=== PATIENT | female | born 1960 | race Caucasian/White ===

== ENCOUNTER 2016-12-29 16:46 | Emergency (ER) | payer MEDICARE ==
[~2016-12-29 16:46] MED LIST: LORA-392 PO; NEXI40CA PO; RIVA15 PO; TRAM50 PO
[2016-12-29 18:23] VITALS: BP 146/78; PULSE 75; RESP 18; O2SAT 97
[2016-12-29 19:18] VITALS: BP 123/78; PULSE 80; RESP 16; O2SAT 97
[2016-12-29] MEDS ORDERED: NEXI40CA PO (19:27)
[2016-12-29] MEDS ORDERED: XARE20TA PO (19:27)
[2016-12-29] MEDS ORDERED: LORA-373 PO (19:27)
[2016-12-29] MEDS ORDERED: HYDR-3111 PO (19:27)
[2016-12-29] MEDS ORDERED: SODIUM CHLORIDE 0.9% FLUSH 5 ML FLUSH IVF PRN (19:30)
--- NOTE | 2016-12-29 19:40 | PD ---
HPI Chief Complaint: Headache Time Seen by Provider: 19:28 Travel History International Travel<30 days: No Contact w/Intl Traveler<30days: No Traveled to known affect area: No History of Present Illness HPI 56-year-old female presents to the emergency department by EMS transport from home for complaint of new onset left-sided facial, left upper extremity, and left lower extremity numbness sudden onset since 4 PM. Patient states that this persisted and while waiting to see if symptoms would resolve she had resolution of left lower extremity numbness but had persistent left facial/ cheek numbness and left upper extremity numbness. Patient states finally her called 911 and she was transported to the hospital by EMS. Patient reports while in the EMS unit she had sudden onset of severe headache 9/10 in intensity. Patient states that she occasionally has headaches related to chronic neck pain for which she receives injections to pain management last injections occurred 3 weeks ago. Patient states this headache is different and left-sided. No visual disturbance no loss of vision no double vision no blurred vision. Patient denies her typical neck pain that is associated with her chronic recurrent headaches. Patient denies any chest pain or palpitations and denies history of atrial fibrillation. Patient denies shortness of breath. Patient denies any upper extremity or lower extremity weakness. Patient denies any previous history of numbness or weakness of the extremities. Patient has been nonambulatory. Symptoms began at 4 PM while watching TV. Patient states that she has history of chronic recurrent blood clots to the lower extremities and PEs. Patient is currently prescribed a liquids and has been on the medication daily for 2 years. Patient denies any family history of stroke or cerebral aneurysm. Patient is unable to identify exacerbating or alleviating factors. Patient received no medications en route to the hospital by EMS. PFSH Past Medical History Blood Disorders: Yes (PE 2005 AND 2008) Cardiovascular Problems: Yes (HX DVT ) Diminished Hearing: No Deep Vein Thrombosis: Yes GERD: Yes Respiratory: Yes (HX PE) Immunizations Current: Yes Tetanus Vaccination: Unknown Influenza Vaccination: No ?: Not : 0 Past Surgical History Appendectomy: Yes Hysterectomy: Yes (partial 2013) Social History Alcohol Use: No Tobacco Use: Yes (1 PACK A WEEK) Substance Use: No Allergies-Medications (Allergen,Severity, Reaction): Coded Allergies: No Known Allergies (Unverified , 08/16/14) Reported Meds & Prescriptions Reported Meds & Active Scripts Active Reported Vicodin (Hydrocodone-Acetaminophen) 5-300 Mg Tab 1 Tab PO Q4H PRN Lorazepam 0.5 Mg Tab 0.5 Mg PO Q4H PRN Nexium (Esomeprazole DR) 40 Mg Capdr 40 Mg PO PRN Xarelto (Rivaroxaban) 20 Mg Tab 20 Mg PO DAILY Review of Systems Except as stated in HPI: all other systems reviewed are Neg General / Constitutional: No: Fever, Chills Eyes: No: Diploplia, Blurred Vision, Visual changes HENT: Positive: Headaches, No: Vertigo, Lightheadedness, Neck Pain Cardiovascular: No: Chest Pain or Discomfort, Palpitations, Diaphoresis Respiratory: No: Cough, Shortness of Breath Gastrointestinal: Positive: Nausea, No: Vomiting Genitourinary: No: Flank Pain Musculoskeletal: No: Myalgias, Arthralgias Skin: No Rash Neurologic: Positive: Focal Abnormalities, Headache, Paresthesia, Sensory Disturbance, No: Weakness, Dizziness, Syncope, Coordination Problem, Ataxia, Change in Mentation, Slurred Speech, Incontinence, Seizures Psychiatric: Positive: Anxiety Endocrine: No: Heat Intolerance Physical Exam Narrative GENERAL: Well-developed well-nourished female in no acute distress no respiratory distress; GCS 15 SKIN: Warm and dry. HEAD: Atraumatic. Normocephalic. EYES: Pupils equal and round. No scleral icterus. No injection or drainage. ENT: No nasal bleeding or discharge. Mucous membranes pink and moist. NECK: Trachea midline. No JVD. CARDIOVASCULAR: Regular rate and rhythm. RESPIRATORY: No accessory muscle use. Clear to auscultation. Breath sounds equal bilaterally. GASTROINTESTINAL: Abdomen soft, non-tender, nondistended. Hepatic and splenic margins not palpable. MUSCULOSKELETAL: Extremities without clubbing, cyanosis, or edema. No obvious deformities. NEUROLOGICAL: Awake and alert. No obvious cranial nerve deficits. Motor grossly within normal limits. Five out of 5 muscle strength in the arms and legs. Mild LUE pronator drift. Left cheek/left UE decreased sensation to light touch otherwise sensory exam intact. DTR's 2++==. Normal speech. NIHSS:2 PSYCHIATRIC: Appropriate mood and affect; insight and judgment normal. Data Data Last Documented VS Vital Signs Date Time Temp Pulse Resp B/P Pulse Ox O2 Delivery O2 Flow Rate FiO2 12/29/16 19:44 64 16 114/[address] Brain W/O Iv Contrast(Rout) (12/29/16 ) Electrocardiogram (12/29/16 19:28) Prothrombin Time / Inr (Pt) (12/29/16 19:28) Act Partial Throm Time (Ptt) (12/29/16 19:28) Complete Blood Count With Diff (12/29/16 19:28) Basic Metabolic Panel (Bmp) (12/29/16 19:28) Troponin I (12/29/16 19:28) Chest, Single Ap (12/29/16 19:28) Ecg Monitoring (12/29/16 19:28) Iv Access Insert/Monitor (12/29/16 19:28) Oximetry (12/29/16 19:28) Sodium Chloride 0.9% Flush (Ns Flush) (12/29/16 19:30) Ondansetron Inj (Zofran Inj) (12/29/16 20:15) Morphine Inj (Morphine Inj) (12/29/16 20:15) Aspirin (Aspirin) (12/29/16 20:15) Labs Laboratory Tests Test 12/29/16 19:34 White Blood Count 9.9 TH/MM3 Red Blood Count 4.90 MIL/MM3 Hemoglobin 15.3 GM/DL Hematocrit 44.7 % Mean Corpuscular Volume 91.1 FL Mean Corpuscular Hemoglobin 31.3 PG Mean Corpuscular Hemoglobin 34.3 % Concent Red Cell Distribution Width 13.6 % Platelet Count 172 TH/MM3 Mean Platelet Volume 9.2 FL Neutrophils (%) (Auto) 68.9 % Lymphocytes (%) (Auto) 22.7 % Monocytes (%) (Auto) 6.8 % Eosinophils (%) (Auto) 1.1 % Basophils (%) (Auto) 0.5 % Neutrophils # (Auto) 6.8 TH/MM3 Lymphocytes # (Auto) 2.2 TH/MM3 Monocytes # (Auto) 0.7 TH/MM3 Eosinophils # (Auto) 0.1 TH/MM3 Basophils # (Auto) 0.1 TH/MM3 CBC Comment DIFF FINAL Differential Comment Prothrombin Time 10.0 SEC Prothromb Time International 0.9 RATIO Ratio Activated Partial 27.5 SEC Thromboplast Time Sodium Level 142 MEQ/L Potassium Level 3.7 MEQ/L Chloride Level 108 MEQ/L Carbon Dioxide Level 25.3 MEQ/L Anion Gap 9 MEQ/L Blood Urea Nitrogen 10 MG/DL Creatinine 0.81 MG/DL Estimat Glomerular Filtration 74 ML/MIN Rate Random Glucose 96 MG/DL Calcium Level 8.9 MG/DL Troponin I LESS THAN 0.02 NG/ML MDM Medical Decision Making Medical Screen Exam Complete: Yes Emergency Medical Condition: Yes Medical Record Reviewed: Yes Interpretation(s) EKG: Normal sinus rhythm rate [address] elevation or injury pattern change normal axis and intervals no ectopy noted Vital Signs Date Time Temp Pulse Resp B/P Pulse Ox O2 Delivery O2 Flow Rate FiO2 12/29/16 19:44 64 16 114/55 96 Room Air 12/29/16 19:18 80 16 123/78 97 Room Air 12/29/16 18:23 75 18 146/78 97 CBC & BMP Diagram 12/29/16 19:34 Last Impressions Chest X-Ray 12/29/16 1928 Signed Impressions: Service Date/Time: Thursday, December 29, 2016 19:39 - CONCLUSION: No acute disease. Jasper Vazquez MD Head CT 12/29/16 0000 Signed Impressions: Service Date/Time: Thursday, December 29, 2016 19:36 - CONCLUSION: No acute disease. No significant change has occurred. Jasper Vazquez MD Differential Diagnosis CVA, TIA, migraine headache, SAH Narrative Course Patient seen at 19:20 with complaint of 9/10 headache with normal range vital signs blood pressure 146/78 upon arrival at 6:23 PM; blood sugar was 110 by EMS. NIHSS: 2; mild drift of left upper extremity 1. mild decreased sensation left cheek left upper extremity 1. @ 8:37 patient insisting on leaving demanding iv to be removed with floor coverings salesperson at the bedside encouraging her to leave; @ 8:40 welling to complete evaluation and to be admitted @ 8:49 informed by patient's nurse patient eloped Critical Care Narrative Aggregate critical care time was 35 minutes. Time to perform other separately billable procedures was not included in the critical care time. My time did not include minutes spent treating any other patients simultaneously or on activities that did not directly contribute to the patient's treatment. The services I provided to this patient were to treat and/or prevent clinically significant deterioration that could result in: Intracranial bleed, thrombotic versus embolic stroke, bleed I provided critical care services requiring my management, as noted below: Chart data review, documentation time, medication orders and management, vital sign assessments/reviewing monitor data, ordering and reviewing lab tests, ordering and interpreting/reviewing x-rays and diagnostic studies, care of the patient and discussion of the patient with the admitting physicians. Physician Communication Physician Communication called; called back @ 7:[address] Macias @ 7:42--aspirin Diagnosis Primary Impression: Left against medical advice Additional Instructions: AMA Disposition: 07 AGAINST MEDICAL ADVICE Condition: Stable Faby Tran MD Dec 29, 2016 19:39 Faby Tran MD Dec 29, 2016 19:39
[2016-12-29 19:44] VITALS: BP 114/55; PULSE 64; RESP 16; O2SAT 96
--- NOTE | 2016-12-29 19:46 | RADRPT ---
EXAM DATE/TIME: 12/29/2016 19:36 [facility] COMPARISON: CT BRAIN W/O CONTRAST, July 05, 2013, 12:30. INDICATIONS : Left sided numbness with cephalgia. RADIATION DOSE: 38.88 CTDIvol (mGy) MEDICAL HISTORY : Cardiovascular disease. Deep venous thrombosis. SURGICAL HISTORY : None. ENCOUNTER: Initial ACUITY: 1 day PAIN SCALE: 7/10 LOCATION: cranial TECHNIQUE: Multiple contiguous axial images were obtained of the head. Using automated exposure control and adj ustment of the mA and/or kV according to patient size, radiation dose was kept as low as reasonably a chievable to obtain optimal diagnostic quality images. FINDINGS: CEREBRUM: The ventricles are normal for age. No evidence of midline shift, mass lesion, hemorrhage or acute in farction. No extra-axial fluid collections are seen. POSTERIOR FOSSA: The cerebellum and brainstem are intact. The 4th ventricle is midline. The cerebellopontine angle i s unremarkable. EXTRACRANIAL: The visualized portion of the orbits is intact. SKULL: The calvaria is intact. No evidence of skull fracture. CONCLUSION: No acute disease. No significant change has occurred. Jasper Vazquez MD on December 29, 2016 at 19:44 Board Certified Radiologist. This report was verified electronically.
[2016-12-29 19:57] LABS: AUTOMATED NEUTROPHIL # 6.8 TH/MM3 (1.8-7.7); BASOPHIL # 0.1 TH/MM3 (0-0.2); BASOPHIL % 0.5 % (0.0-2.0); EOSINOPHIL # 0.1 TH/MM3 (0-0.4); EOSINOPHIL % 1.1 % (0.0-4.0); HEMATOCRIT 44.7 % (35.0-46.0); HEMO FLAGS DIFF FINAL; LYMPH % 22.7 % (9.0-44.0); LYMPHOCYTE # 2.2 TH/MM3 (1.0-4.8); MEAN CELL VOLUME 91.1 FL (80.0-100.0); MEAN CORPUSCULAR HEMOGLOBIN 31.3 PG (27.0-34.0); MEAN CORPUSCULAR HGB CONC 34.3 % (32.0-36.0); MONO % 6.8 % (0.0-8.0); NEUT % 68.9 % (16.0-70.0); PLATELET COUNT 172 TH/MM3 (150-450); RED CELL DISTRIBUTION WIDTH 13.6 % (11.6-17.2); WHITE BLOOD COUNT 9.9 TH/MM3 (4.0-11.0)
[2016-12-29 20:08] LABS: APTT (PATIENT) 27.5 SEC (24.3-30.1); INTERNATIONAL NORMALIZED RATIO 0.9 RATIO
[2016-12-29] MEDS ORDERED: ASPIRIN 325 MG TAB PO ONE (20:15)
[2016-12-29] MEDS ORDERED: ONDANSETRON HCL 4 MG/2 ML VIAL IV PUSH ONE (20:15)
[2016-12-29] MEDS ORDERED: MORPHINE SULFATE 4 MG/ML INJ IV PUSH ONE (20:15)
[2016-12-29 20:20] LABS: ANION GAP 9 MEQ/L (5-15); BICARBONATE 25.3 MEQ/L (21.0-32.0); BLOOD UREA NITROGEN 10 MG/DL (7-18); CHLORIDE 108 MEQ/L (98-107); GLOMERULAR FILTRATION RATE 74 ML/MIN (>89); POTASSIUM 3.7 MEQ/L (3.5-5.1); SODIUM (NA) 142 MEQ/L (136-145)
--- NOTE | 2016-12-29 20:21 | RADRPT ---
EXAM DATE/TIME: 12/29/2016 19:39 [facility] COMPARISON: CHEST SINGLE AP, August 16, 2014, 10:18. INDICATIONS : Chest pain with left side numbness. MEDICAL HISTORY : Cardiovascular disease. Deep venous thrombosis. SURGICAL HISTORY : None. ENCOUNTER: Initial ACUITY: 1 day PAIN SCORE: 5/10 LOCATION: Bilateral chest FINDINGS: A single view of the chest demonstrates the lungs to be symmetrically aerated without evidence of mas s, infiltrate or effusion. The cardiomediastinal contours are unremarkable. Osseous structures are intact. CONCLUSION: No acute disease. Jasper Vazquez MD on December 29, 2016 at 20:17 Board Certified Radiologist. This report was verified electronically.
--- NOTE | 2016-12-30 23:52 | EKG ---
Date Performed: 12/29/2016 Time Performed: 20:01:08 PTAGE: 56 years EKG: Sinus rhythm NORMAL ECG PREVIOUS TRACING : 08/16/2014 09.39 Compared to prior tracing no significant change DOCTOR: Demar Balderas Interpretating Date/Time 12/30/2016 23:50:50
== END 2016-12-29 20:48 | disposition left against medical advice (07) ==
LOC: NEPC 16:46
DX: R51 Headache (principal); R20.0 Anesthesia of skin; Z86.718 Personal history of other venous thrombosis and embolism; Z86.711 Personal history of pulmonary embolism; R07.9 Chest pain, unspecified; F17.210 Nicotine dependence, cigarettes, uncomplicated
CPT/HCPCS: 70450; 71010; 80048; 84484; 85025; 85610; 85730; 93005